=== PATIENT | male | born 1940 | race Caucasian/White ===

== ENCOUNTER 2017-03-01 06:51 | Day surgery (SDC) | payer MEDICARE ==
[2017-03-01] VITALS (11 sets, daily range): BP systolic 155–190; BP diastolic 56–89; PULSE 69–87; RESP 16–21; O2SAT 93–100
[~2017-03-01] VITALS: Ht 180.3 cm; Wt 69.8 kg
[~2017-03-01 06:51] MED LIST: FAMO20T PO; LISI10TA PO; LOV40 SUBQ; METF1000 PO; METO25TA99 PO; Mitomycin Inj 40 MG in Syringe 1 EACH IRRIGATION ONE; SIMV20TA4 PO; WARF5TAB7 PO; levoFLOXacin Inj 500 MG in IV Premix 1 EACH IV ONE
[2017-03-01] MEDS ORDERED: GENTAMICIN 40 MG/ML ONE (06:52)
[2017-03-01] MEDS ORDERED: Propofol 10,000 mCg/mL 20 mL Inj ONE (06:52)
[2017-03-01] MEDS ORDERED: Ondansetron 2 mg/mL 2 mL Inj ONE (06:52)
[2017-03-01] MEDS ORDERED: EPHEDrine/NS 5 mg/mL 5 mL Syringe ONE (06:52)
[2017-03-01] MEDS ORDERED: Rocuronium 10 mg/mL 5 mL Inj ONE (06:52)
[2017-03-01] MEDS ORDERED: fentaNYL-PF 50 mCg/mL 2 mL Inj ONE (06:52)
[2017-03-01] MEDS ORDERED: levoFLOXacin 500 mg/100 mL D5W Premix IV ONE (06:52)
[2017-03-01] MEDS: Lactated Ringer's 1,000 ML IV SCH ×2 (07:00→08:56)
[2017-03-01 08:01] LABS: INR 0.95 ratio
[2017-03-01] MEDS ORDERED: Gentamicin Inj 120 MG in Dextrose 5% 50 ML IV ONE (08:40)
[2017-03-01] MEDS ORDERED: EPHEDrine Sulfate 50 mg/mL Inj IVPUSH PRN (08:45)
[2017-03-01] MEDS ORDERED: Lactated Ringer's 500 ML IV PRN (08:45)
[2017-03-01] MEDS ORDERED: HYDROmorphone 1 mg/mL Inj IVPUSH PRN (08:45)
[2017-03-01] MEDS ORDERED: fentaNYL-PF 50 mCg/mL 2 mL Inj IVPUSH PRN (08:45)
[2017-03-01] MEDS ORDERED: Ondansetron 2 mg/mL 2 mL Inj IVPUSH PRN (08:45)
[2017-03-01] MEDS ORDERED: MetoCLOpramide 5 mg/mL 2 mL Inj IVPUSH PRN (08:45)
[2017-03-01] MEDS ORDERED: Dexamethasone 4 mg/mL Inj IVPUSH PRN (08:45)
[2017-03-01] MEDS ORDERED: Phenylephrine 10,000 mCg/mL Inj IVPUSH PRN (08:45)
[2017-03-01] MEDS ORDERED: Lactated Ringer's 1,000 ML IV SCH (08:45)
--- NOTE | 2017-03-01 08:45 | PCM.HPANE ---
Patient Data Surgeon Admitting Provider: Attending Provider:Jarad De Paz MD Primary Care Physician:Erlin Tirado DO Other Provider:Lola Anayaingham Anesthesia Reason for Visit Bladder Tumor Ht/WT & BMI Height (Feet): 6 Height (Inches): 0 Weight (Kilograms): 71.84 Body Mass Index 21.00 Allergies Coded Allergies: morphine (Verified Allergy, Unknown, n/v, 02/22/17) Past Anesthesia History Anesthesia History: Denies:: Abnormal Airway, Anesthesia Reactions, Difficult Intubation, Fam Anesthesia Reaction, Fam Malignant Hypertherm, Malignant Hyperthermia Diabetes History Hx Diabetes?: Yes Type of Diabetes: Type II Glycemic Control: Oral Medication MRSA MRSA: No Medications Blood Thinner: Coumadin Hypertension Medication: Yes Home Meds Incl Beta Segundo: Yes Reported Medications Enoxaparin (Lovenox)40 Mg/0.4 Ml Ofdande00 Mg SUBQ DAILY Ref 0 bridging dose pre surgery, to stop day prior to surgery 02/22/17 Warfarin Sodium 5 Mg Tablet7.5 Mg PO 4xweek 30 Days Ref 0 02/22/17 Warfarin Sodium 5 Mg Tablet5 Mg PO Mon,Wed,Sun 30 Days Ref 0 02/22/17 Simvastatin 20 Mg Mkyaao89 Mg PO HS Ref 0 02/22/17 Metoprolol Succinate ER 25 Mg Tab.er.24h12.5 Mg PO DAILY Ref 0 02/22/17 Metformin (Glucophage)1,000 Mg Tablet1,000 Mg PO HS Ref 0 02/22/17 Lisinopril 10 Mg Tablet5 Mg PO DAILY 30 Days Ref 0 02/22/17 Famotidine (Pepcid)20 Mg Qvugen89 Mg PO BID 02/22/17 Discontinued Reported Medications Mu-Vits-Min Th/Lycopene/Lutein (Centrum Silver Tablet)1 Each Tablet1 Each PO DAILY 07/15/13 Lisinopril-Expunged Drug, Do Not Renew! 5 Mg Tablet5 Mg PO HS 07/15/13 Famotidine-Expunged Drug, Do Not Renew! 40 Mg Ovptlc13 Mg PO BID Take in morning and at dinner. 07/25/12 Simvastatin-Expunged Drug, Choose New Med! 20 Mg Qtftah66 Mg PO QPM #0 TAB 07/25/12 Warfarin Inactive Drug Do Not Use (Coumadin Inactive Drug Do Not Use)5 Mg Tablet5-7.5 Mg PO DAILY Ref 0 09/30/08 Metformin-Expunged Drug, Do Not Renew! 1,000 Mg Tablet1,000 Mg PO DAILYWD Ref 0 09/30/08 History History of ENT Problems?: No HEENT History: Positive for:: Cataracts (bilateral surgery) Denies:: Abnormal Airway Difficult Intubation Dysphagia Glaucoma Hearing Problem Sinus Problem TMJ Denture Type: None Teeth Condition: Within Normal Limits Hx of Heart Problems?: Yes Cardiovascular History: Positive for:: Atrial Fibrillation Hypertension Irregular Heartbeat Denies:: Chest Pain Congestive Heart Failure Edema Heart Murmur Pacemaker Hx of Respiratory Problem?: Yes Respiratory History: Positive for:: Chest Surgery (right lung sx) Emphysema Denies:: Asthma COPD Oxygen Administration Pneumonia Tuberculosis Use of C-PAP Machine Use of Inhalers / NEBS Other Resp Pertinent History: had spontaneous pneumo years ago- had lung surgery to rough up lining of lungs Hx Neurologic Problems?: No Neurological History: Denies:: CVA Dizziness Headaches Multiple Sclerosis (being monitored for Huntingtons syndrome) Parkinson's Disease Seizures Hx of GI Problems?: Yes Hx of Problems?: No Genitourinary History: Denies:: HX of Hemodialysis Kidney Stones Urinary Tract Infection HX of Peritoneal Dialysis: No Other Pertinent History: bladder tumor current admission problem Male Hx: Denies:: Prostate Problems (PSA being monitored "rising") Scrotal Mass Testicular Surgery Skin History: Denies:: History Skin Disorders? Pressure Ulcers Hx Musculoskeletal Problems?: Yes Musculoskeletal History: Positive for:: Back Injury (compression fractures L1) Denies:: Degenerative Joint Fibromyalgia Joint Replacement Musculoskeletal Trauma Osteoarthritis Systemic Lupus Hx of Psycho/Social Problems?: No Psycho Social History: Denies:: Anxiety Bipolar Disorder Hx Depression Hx Surgeries?: Yes (right lung surgery) Hx Any Other Health Problems?: Yes Other History: Positive for:: Hospitalization Denies:: Cancer Thyroid Disease History Blood Transfusions: Positive for:: Accept Blood Products? Blood Transfusions Denies:: Blood Transfuse Reaction (states in 1962 got hepatitis) Hx Diabetes: Yes Hx Alcohol Use: YesAlcoholic Drinks Per Day: one glass dailyHx Substance Use: NoHave You Smoked inLast 12 mo: No Stop/Bang P-Blood Pressure: treated: Yes B- Body Mass Index > 35 kg/m2: No A- Age over 50: Yes N- Neck Large Circumference: No G- Gender Male: Yes HEATHER Risk Assessment: High Risk, =/>3 Yes HEATHER Category 4 OutPt Procedure: Yes Risk Assessment Category Category 1A: Patient has history of documented sleep apnea, and HAS NOT received any narcotic, sedative or anesthesia administration during this stay. Category 1B: Patient has history of documented sleep apnea, and HAS received any narcotic , sedative or anesthesia administration during this stay Category 2: Patient has SUSPECTED Obstructive Sleep Apnea, and HAS received any narcotic , sedative or anesthesia administration during this stay. Category 3: Patient has SUSPECTED Obstructive Sleep Apnea and HAS NOT received narcotic, sedative or anesthesia administration during this stay. Category 4: Outpatient in Procedural Areas with known sleep apnea or who screen positive for High Risk via the STOP/BANG questionnaire. Exam Exam General Appearance: Alert HEENT/AIRWAY: MP 2, Neck Movement (from, 3 fb) Lungs: Clear to Auscultation Heart: Other (irregular) Meds/Labs/Diagnostics Admission Meds Current Medications Lactated Ringer's (Lr) 1,000 ml @ 120 mls/hr Q8H20M IV Last administered on t 07:00; Start 03/01/17 at 05:00; Stop 03/01/17 at 13:19 Plan Impression Patient chart reviewed, patient interviewed and anesthestic plan with risks, benefits, and alternatives discussed, and informed consent obtained. NPO per Anesth. Guidelines: Yes ASA Physical Status: ASA3 Severe Disease Anesthetic Plan: GA Bene/Risks/Altern/Consents: Yes HP Complete Prior to Induction: Yes Other Discussed GA. All questions were answered and he agrees to proceed. Jamison Lopez MD Mar 01, 2017 07:27
[2017-03-01] MEDS ORDERED: Belladonna Alk-Opium 60 mg Rectal Suppository RECTAL ONE ×2 (10:16→10:35)
--- NOTE | 2017-03-01 10:57 | PCM.SURGPO ---
Immediate Operative Note Date of Surgery: Mar 01, 2017 Pre Operative Diagnosis Bladder tumor Post Operative Diagnosis Bladder tumor Procedure Cystoscopy, transurethral resection of bladder tumor (>5 cm) Surgeon and Insulation Manager Surgeon: Jarad De Paz MD Assistants: None Findings Cystoscopy revealed a large approx. 5-6cm papillary low-lying bladder tumor on R lateral wall (extending to R bladder neck, R anterior wall, and dome). Bladder tumor resected using bipolar loop electrocautery. B/L ureteral orifices seen to be intact and well-preserved at the end of the case. Complications There were no periprocedural complications identified. Surgical Specimen Removed: Yes Specimen sent to Pathology: Yes Surgical Specimen description: R lateral wall bladder tumor Anesthetic Administered: GA Grafts, Implants: Other (20F Nassar catheter to straight drainage) Output, Estimated Blood Loss: 30 Blood Admin during surgery: No Additional information Patient to be discharged home with Nassar catheter, to RTC in 1.5 - 2 weeks for post-op visit and trial of void (AM appt.). Jarad De Paz MD Mar 01, 2017 10:57
[2017-03-01] MEDS ORDERED: Phenazopyridine 97.5 mg Tablet PO ONE (11:00)
--- NOTE | 2017-03-01 11:30 | PCM.DISURG ---
Surgical Discharge Instruction Date of Service Mar 01, 2017 Dates of Hospitalization Date of Hospital Admission Mar 01, 2017 Providers Admitting Physician: Jarad De Paz MD Primary Care Physician: Erlin Tirado DO Attending Physician: Jarad De Paz MD Discharge Diagnosis Discharge Diagnosis Bladder tumor Post Operative diagnosis Bladder tumor Diet Discharge Diet: No restrictions, Other (Drink at least 10-12 8oz. glasses (3 liters) of fluids per day as long as there is blood in the urine) Activity Discharge Activity-General: No driving while taking narcotic, Other (No strenuous exercise/activity or moderate or heavy lifting (>10 lbs.) for 1-2 weeks and as long as there is blood in the urine) Dressing and Incisional Care Hygiene: May shower Additional Instructions Discharge Instructions Re-start Lovenox and Coumadin in 3 days (as long as there has been no blood in the urine for at least 24 hours). If there is blood in the urine at 3 days after surgery, wait to re-start Lovenox and Coumadin until there has been no blood in the urine for at least 24 hours. Follow Up Plan Follow-up Provider (F9): Jarad De Paz MD Follow-up appointment: Weeks (1.5 - 2 weeks for post-op visit and trial of void (AM appt.)) Call your provider for: Fever, Chills, Vomiting, Other (Pain uncontrolled by pain medications, non-draining Nassar catheter) Jarad De Paz MD Mar 01, 2017 11:30
--- NOTE | 2017-03-01 11:30 | PCM.ANEP1 ---
Post Anesthesia PACU Phase 1 Assessment Vital Signs Vital Signs Date Time Temp Pulse Resp B/P Pulse Ox O2 Delivery O2 Flow Rate FiO2 03/01/17 11:15 80 20 190/60 93 Room Air 03/01/17 11:00 36.5 81 20 170/71 100 Simple Mask 6 03/01/17 10:55 81 21 155/84 99 Simple Mask 6 03/01/17 10:50 77 20 158/66 100 Simple Mask 6 03/01/17 10:45 84 19 158/60 100 Simple Mask 6 03/01/17 10:42 36.2 181/71 03/01/17 07:36 36.3 69 16 157/56 95 Room Air Anesthetic Administered: GA Level of Alertness: Awake, talking TARIQ's with Equal Strength: Yes Pain: No Nausea or Vomiting: No CV Function & Hydration Stable: Yes Airway Device: Oxygen Delivery: Simple Mask Lungs: Clear to Auscultation Dermatome Level: Full Sensation PACU Phase 2 Assessment Complications: No Follow up Care: N/A Patient Instructions Provided: N/A Jamison Lopez MD Mar 01, 2017 11:30
[2017-03-01] MEDS ORDERED: HYDROcodone-APAP 5-325 mg Tablet PO PRN (11:35)
--- NOTE | 2017-03-02 20:44 | OP ---
[address] [address] OPERATIVE REPORT PATIENT: RASHMI GILLILAND : 1940 MR#: [id number] ADMIT: 03/01/2017 JOB ID: [id number] DATE OF SURGERY: 03/01/2017 SURGEON: Jarad De Paz MD COMMUNITY MUSIC THERAPIST: None. PREOPERATIVE DIAGNOSIS(ES): Bladder tumor. POSTOPERATIVE DIAGNOSIS(ES): Bladder tumor. PROCEDURE: Cystoscopy, transurethral resection of bladder tumor (greater than 5 cm). ANESTHESIA: General. ESTIMATED BLOOD LOSS: 30 mL. SPECIMENS: Right lateral wall bladder tumor. DRAINS: A 20-Moldovan Nassar catheter straight drainage. COMPLICATION: None. CONDITION: Stable. FINDINGS: Cystoscopy revealed a large, approximately 5-6 cm papillary low-lying bladder tumor on the right lateral wall (extending to the right bladder neck, right anterior wall and dome). Bladder tumor resected using bipolar loop electrocautery. Bilateral ureteral orifices seen to be intact and well-preserved at the end the case. INDICATIONS: The patient is a 77-year-old male, found on office cystoscopy to have a bladder tumor. The patient now presents for cystoscopy, transurethral resection of bladder tumor and mitomycin intravesical instillation. DESCRIPTION OF PROCEDURE: The patient was brought to the operating room and placed supine on the operating room table. The patient was given Levaquin IV antibiotics. Sequential compression device boots were placed. General anesthesia was administered. The patient was brought down into the dorsal lithotomy position. The patient was prepped and draped in standard surgical fashion. A 26-Moldovan continuous flow resectoscope was placed into the distal urethra without difficulty. Cystoscopy revealed normal distal urethra. Moderate trilobar prostatic hypertrophy with moderately enlarged intravesical median prostatic lobe. Mildly trabeculated bladder. Bilateral ureteral orifices in normal position. No bladder calculi and a large approximately 5-6 cm papillary low-lying bladder tumor on the right lateral wall (extending to the right bladder neck, right anterior wall and dome). The bladder tumor was resected in its entirety using bipolar loop electrocautery and sent to Pathology for permanent specimen. The base of the bladder tumor resected area including normal surrounding bladder mucosa were fulgurated using bipolar loop electrocautery. Excellent hemostasis was achieved. Bilateral ureteral orifices were seen to be intact and well-preserved at the end of the case. The continuous-flow resectoscope was removed from the patient. A 20-Moldovan Nassar catheter was placed through the urethra and into the bladder without difficulty. Nassar catheter balloon was inflated with 10 mL sterile water. Nassar catheter was placed to straight drainage. The skin was cleaned and dried. Patient was placed in supine position. The patient was awakened from general anesthesia and transferred to the recovery room in stable condition. The patient tolerated the procedure well. PLAN: Plan is for the patient be discharged home with a Nassar catheter and return to see me in the office in 1-1/2 to 2 weeks for postop visit and trial of void.
--- NOTE | 2017-03-05 13:18 | PATH ---
SURGICAL PATHOLOGY Attending Physician:Jarad De Paz MD CASE STATUS: Signed Out PATIENT NAME: RASHMI GILLILAND PID: [id number] : 1940 DATE COLLECTED:03/01/2017 19:28 SPECIMEN: Bladder, Biopsy CLINICAL HISTORY: BLADDER TUMOR, BLADDER TUMOR 1). 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 EXTENSIVE CARCINOMA IN SITU IS PRESENT. MUSCULARIS PROPRIA IS PRESENT AND IS UNINVOLVED BY TUMOR. ICD10 C67.2 NOTE: As part of a routine quality control analyst, Dr. Dallin Gonzalez has also reviewed this case and agrees with the diagnosis. GROSS DESCRIPTION: The specimen is received in one formalin filled container labeled with the patient's name, sublabeled "right lateral wall bladder tumor" and consists of multiple portions of tissue which aggregate to 2.0 x 2.0 x 0.4 CM. The specimen is entirely submitted in one cassette. 03/01/2017DC MICRO DESCRIPTION: See diagnosis. ICD-9 CODES: CPT CODES: 1: 77473 Electronically Signed Out Hilda Samson MD [facility] Pathology [facility] [address], [place] [address] Technical component performed at [facility], [address] [place] [address] [address], [place], [address]
== END 2017-03-01 23:59 | disposition home or self-care (01) ==
LOC: SAS 06:51
PROVIDERS: ATTEND Urology
PROC: 0TBB8ZZ Excision of Bladder, Via Natural or Artificial Opening Endoscopic (ICD-10-PCS; principal; 2017-03-01 08:45)
DX: C67.2 Malignant neoplasm of lateral wall of bladder (principal); N40.1 Benign prostatic hyperplasia with lower urinary tract symptoms; R35.0 Frequency of micturition; R35.1 Nocturia; Z87.440 Personal history of urinary (tract) infections; I48.91 Unspecified atrial fibrillation; Z79.01 Long term (current) use of anticoagulants; J43.9 Emphysema, unspecified; I10 Essential (primary) hypertension; E11.9 Type 2 diabetes mellitus without complications; Z79.84 Long term (current) use of oral hypoglycemic drugs; Z87.891 Personal history of nicotine dependence
CPT/HCPCS: 36415; 52240; 85610; 85730; J1580; J2405; J3010; J7120